=== PATIENT | male | born 1945 | race Caucasian/White ===

== ENCOUNTER → 2016-07-01 | Outpatient (CLI) | payer OTHER, BC | LOC: LAB 11:00 | PROVIDERS: ATTEND Physician Assistant | DX: R33.9 Retention of urine, unspecified (principal) | CPT/HCPCS: 36415; 84153 ==

== ENCOUNTER → 2016-10-16 | Outpatient (CLI) | payer OTHER ==
--- NOTE | 2016-10-16 22:12 | DI ---
LUMBAR SPINE SERIES, 10/16/2016 3:50 PM: Clinical History: Acute left-sided low back pain with left-sided sciatica. Previous Exam: None at this facility. Upright AP and lateral views are submitted. The vertebral bodies are of normal height and size. There is mild L4-5 disc space narrowing with a grade 1 spondylolisthesis. The remaining lumbar disc spaces are of normal height. Degenerative arthritic changes are present in the apophyseal joints bilaterall y between L4-5 and L5-S1. The pedicles and remaining posterior elements are unremarkable. Both SI maco nts are normal. There is a fusiform abdominal aortic aneurysm in the distal abdominal aorta with a ma ximum AP diameter of approximately 36 mm without correction for magnification. There may be hepatomeg la nena. Readin. L4-5 disc space narrowing with a grade 1 spondylolisthesis. There are degenerative arthritic mcgregor ges in the apophyseal joints bilaterally between L4-5 and L5-S1. 2. The remaining disc spaces are of normal height. 3. Fusiform distal abdominal aortic aneurysm with an AP measurement of 36 mm (without correction for magnification). There may be hepatomegaly.
== END ==
LOC: RAD 16:08
PROVIDERS: ATTEND Family Medicine
DX: M54.42 Lumbago with sciatica, left side (principal); M43.16 Spondylolisthesis, lumbar region
CPT/HCPCS: 72100

== ENCOUNTER → 2016-10-17 | Outpatient (CLI) | payer OTHER ==
[2016-10-17 07:22] LABS: BASOPHILS # (AUTO) 0.05 10*3/UL; BASOPHILS % (AUTO) 0.5 % (0-1); EOSINOPHILS # (AUTO) 0.38 10*3/UL; EOSINOPHILS % (AUTO) 4.1 % (0-8); HEMATOCRIT 36.8 % (42.0-52.0); HEMOGLOBIN 12.2 g/dL (14.0-18.0); LYMPHOCYTES # (AUTO) 3.15 10*3/uL; MEAN CORPUSCULAR HEMOGLOBIN 28.5 PG (27-31); MEAN CORPUSCULAR HGB CONC 33.2 g/dL (33-37); MEAN PLATELET VOLUME 10.3 FL (7.4-12.2); MONOCYTES # (AUTO) 0.76 10*3/UL (0.3-0.8); MONOCYTES % (AUTO) 8.2 % (5-15); NEUTROPHILS # (AUTO) 4.95 10*3/UL; NEUTROPHILS % (AUTO) 53.2 % (50-80); RED BLOOD COUNT 4.28 10^6/uL (4.70-6.10)
[2016-10-17 07:28] LABS: PLATELET MORPHOLOGY COMMENT NORMAL MORPHOLOGY (NORM); RBC MORPHOLOGY COMMENT NORMAL MORPHOLOGY (NORM); WBC MORPHOLOGY COMMENT NORMAL MORPHOLOGY (NORM)
[2016-10-17 07:43] LABS: BUN/CREATININE RATIO 11.66 (6-20); CALCIUM 9.2 mg/dL (8.7-10.7); CHOL/HDL RATIO 3.93 RATIO (0-4.0); SERUM ALBUMIN 4.2 g/dL (3.5-4.8); URIC ACID 9.4 mg/dl (3.8-8.5)
== END ==
LOC: LAB 06:58
PROVIDERS: ATTEND Family Medicine
DX: G57.91 Unspecified mononeuropathy of right lower limb (principal); I25.10 Atherosclerotic heart disease of native coronary artery without angina pectoris; I71.6 Thoracoabdominal aortic aneurysm, without rupture; R94.31 Abnormal electrocardiogram [ECG] [EKG]; Z13.1 Encounter for screening for diabetes mellitus; Z12.5 Encounter for screening for malignant neoplasm of prostate
CPT/HCPCS: 36415; 80053; 80061; 82306; 82607; 83036; 84443; 84550; 85025; 85652; 86618; G0103

== ENCOUNTER → 2016-11-20 | Outpatient (CLI) | payer OTHER | LOC: CT 08:46 | PROVIDERS: ATTEND Family Medicine | DX: Z01.812 Encounter for preprocedural laboratory examination (principal); I71.6 Thoracoabdominal aortic aneurysm, without rupture | CPT/HCPCS: 36415; 82565; 84520 ==

== ENCOUNTER → 2016-11-25 | Outpatient (CLI) | payer OTHER ==
--- NOTE | 2016-11-25 11:59 | EKG ---
[address] [address] Measurements Intervals [place] Rate: 76 P: 55 [place]: 144 QRS: 65 QRSD: 90 T: 48 QT: 372 QTc: 402 Interpretive Statements SINUS RHYTHM Compared to ECG 10/31/2015 08:59:56 T-wave abnormality no longer present Electronically Signed On 11-26-16 12:17:08 MDT by Chad Giles MD [email or web address]
== END ==
LOC: RT 11:12
DX: J84.112 Idiopathic pulmonary fibrosis (principal)
CPT/HCPCS: 93005; 93010

== ENCOUNTER → 2016-12-02 | Outpatient (CLI) | payer OTHER ==
[2016-12-02 10:52] LABS: BUN/CREATININE RATIO 11.57 (6-20); CALCIUM 9.4 mg/dL (8.7-10.7)
== END ==
LOC: LAB 10:03
PROVIDERS: ATTEND Family Medicine
DX: R79.89 Other specified abnormal findings of blood chemistry (principal)
CPT/HCPCS: 36415; 80048

== ENCOUNTER → 2016-12-03 | Outpatient (CLI) | payer OTHER ==
--- NOTE | 2016-12-03 14:16 | DI ---
CT ABDOMEN/PELVIS W/O CONTRAST,12/03/2016 9:01 AM: Clinical History: Thoracic or abdominal aortic aneurysm without rupture. Previous Exam: 11/16/15 Findings: Multiple helically acquired CT images are obtained through the chest, abdomen and pelvis without cont rast. There is diffuse COPD. A few peripheral vascular calcifications are seen. Coronary artery calcifications are also noted. There are a few small mediastinal lymph nodes without pathologic enlargement. The abdomen, spleen, pancreas and adrenals are unremarkable. There is a stable punctate calcification near the left renal hilum which most likely represents a vas cular calcification. The ureters are normal in course and caliber. There is dilation of the infrarenal abdominal aorta measuring 4.0 cm in AP dimension. There are is stable soft plaque noted with some encroachment of the calcified intima distally within the aorta. Facet hypertrophy is also normal. Impression: No significant change since the prior exam.
--- NOTE | 2016-12-03 14:29 | DI ---
CT CHEST W/O CONTRAST,12/03/2016 9:01 AM: Clinical History: Abdominal aortic aneurysm without rupture. Previous Exam: 11/09/2015 Findings: Multiple helically acquired CT images are obtained through the chest without contrast, and demonstrat e normal course, caliber and mild diffuse COPD. There is some subsegmental atelectasis noted as well. The upper abdomen is not well evaluated. Parikh ry artery calcifications are seen. Moderate peripheral vascular disease is also noted. The thyroid is unremarkable. Diffuse degenerative changes of the spine are seen. Impression: 1. Mild diffuse COPD. 2. No evidence of thoracic aortic aneurysmal dilation.
== END ==
LOC: CT 08:58
PROVIDERS: ATTEND Family Medicine
DX: I71.6 Thoracoabdominal aortic aneurysm, without rupture (principal); R10.84 Generalized abdominal pain; J44.9 Chronic obstructive pulmonary disease, unspecified; R79.89 Other specified abnormal findings of blood chemistry
CPT/HCPCS: 71250; 74176

== ENCOUNTER → 2017-02-13 | Outpatient (CLI) | payer OTHER ==
--- NOTE | 2017-02-13 10:59 | DI ---
BILATERAL RENAL ULTRASOUND, 02/13/2017 8:48 AM: Clinical History: Chronic renal disease. Previous Exam: None at this facility. Scans are performed through both kidneys in multiple projections. The right kidney measures 100 mm, a nd the left kidney measures 102 mm. There is no solid or cystic mass in either kidney but there is de creased renal parenchymal volume in both kidneys. There is no hydronephrosis or hydroureter. Perfusio n to both kidneys is symmetric and normal. The bladder is normal. Bilateral ureteral jets are visuali zed. There is an estimated prevoid bladder volume of 235 mL. There is 40 mL post void residual volume . Readin. Both kidneys have normal appearance except for decrease in parenchymal volume. 2. The bladder is normal and there is about 15% (40 mL) post void residual volume.
== END ==
LOC: US 08:41
DX: N18.3 Chronic kidney disease, stage 3 (moderate) (principal)
CPT/HCPCS: 76770

== ENCOUNTER 2018-10-02 06:45 | Inpatient (IN) ==
[~2018-10-02 06:45] MED LIST: LIDOCAINE W/ SODIUM BICARB 0.5 ML SYR ONE; LIDOCAINE W/ SODIUM BICARB 0.5 ML SYR SUBD PRN; Lactated Ringers 1,000 ML PRIMARY IV ONE; Nasal Sanitizer POPSWAB ampule 3 AMP (Nozin) PREOP DOSE ENOS SCH; ceFAZolin Inj 2gm (Premix) 2 GM/50 ML BAG IV ONE
[2018-10-02] MEDS ORDERED: Sodium Chloride 0.9% 1,000 ML PRIMARY IV ONE (06:51)
[2018-10-02] MEDS: Lactated Ringers 1,000 ML PRIMARY IV SCH ×3 (07:08→22:53)
[2018-10-02 07:15] LABS: BILIRUBIN,URINE NEGATIVE (NEG); CLARITY,URINE CLEAR (CLEAR); COLOR,URINE YELLOW (Y); GLUCOSE, URINE (UA) NEGATIVE (NEG); OCCULT BLOOD,URINE NEGATIVE (NEG); PH,URINE 5.5 (5.0-8.5); PROTEIN,URINE NEGATIVE (NEG); UROBILINOGEN,URINE 0.2 EU/dL (0.2)
[2018-10-02 07:16] LABS: URINE SAMPLE TYPE CLEAN CATCH URINE
[2018-10-02 07:49] LABS: BASOPHILS # (AUTO) 0.04 10*3/UL; BASOPHILS % (AUTO) 0.5 % (0-1); EOSINOPHILS # (AUTO) 0.38 10*3/UL; EOSINOPHILS % (AUTO) 4.4 % (0-8); Hematocrit [HCT] 35.9 % (42.0-52.0); Hemoglobin [HGB] 11.8 g/dL (14.0-18.0); LYMPHOCYTES # (AUTO) 2.97 10*3/uL; MEAN CORPUSCULAR HEMOGLOBIN 29.6 PG (27-31); MEAN CORPUSCULAR HGB CONC 32.9 g/dL (33-37); MEAN PLATELET VOLUME 10.3 FL (7.4-12.2); MONOCYTES # (AUTO) 0.61 10*3/UL (0.3-0.8); MONOCYTES % (AUTO) 7.1 % (5-15); NEUTROPHILS # (AUTO) 4.63 10*3/UL; NEUTROPHILS % (AUTO) 53.5 % (50-80); RED BLOOD COUNT 3.99 10^6/uL (4.70-6.10)
[2018-10-02 07:55] LABS: PLATELET MORPHOLOGY COMMENT NORMAL MORPHOLOGY (NORM); RBC MORPHOLOGY COMMENT NORMAL MORPHOLOGY (NORM); WBC MORPHOLOGY COMMENT NORMAL MORPHOLOGY (NORM)
[2018-10-02] MEDS ORDERED: Sodium Chloride 0.9% 500 ML ONE (08:32)
[2018-10-02] MEDS ORDERED: TRANEXAMIC ACID 1,000 MG / 10 ML VIAL ONE ×3 (08:32→10:41)
[2018-10-02] MEDS ORDERED: Sodium Chloride 0.9% 100 ML IV ONE (08:32)
[2018-10-02] MEDS ORDERED: IPRATROPIUM/ALBUTEROL SULFATE 3 ML NEB NEB ONE ×2 (08:49→08:53)
[2018-10-02] MEDS ORDERED: PROPOFOL 10 MG/1 ML (200 MG/20 ML) VIAL IV ONE (09:03)
[2018-10-02] MEDS ORDERED: fentaNYL Inj 250 MCG/5 ML VIAL ONE (09:04)
[2018-10-02] MEDS ORDERED: ROCURONIUM 10 MG/1 ML - 5 ML VIAL IVP ONE (09:05)
[2018-10-02] MEDS ORDERED: SUCCINYLCHOLINE CHLORIDE 20 MG/1 ML - 10 ML ONE (09:05)
[2018-10-02] MEDS ORDERED: MIDAZOLAM HCL 2 MG/2 ML VIAL ONE (09:13)
[2018-10-02] MEDS ORDERED: BUPIVACAINE SPINAL 7.5 MG/1 ML - 2 ML IV ONE (09:22)
[2018-10-02] MEDS ORDERED: ceFAZolin 1 GM VIAL ONE (10:19)
[2018-10-02] MEDS ORDERED: Hetastarch 6% + NS 500 ML IV ONE (10:27)
[2018-10-02] MEDS ORDERED: ceFAZolin Inj 1 GM in Sodium Chloride 0.9% 100 ML IV ONE (10:43)
[2018-10-02] MEDS ORDERED: DEXAMETHASONE PF 10 MG/1 ML VIAL ONE (11:33)
[2018-10-02] MEDS ORDERED: MAG HYDROX/AL HYDROX/SIMETH 30 ML SUSP PO PRN (12:21)
[2018-10-02] MEDS ORDERED: Ondansetron ODT Tab 8 MG TAB PO PRN (12:21)
[2018-10-02] MEDS ORDERED: CALCIUM CARBONATE 500 MG (TUMS) CHEWABLE TABLET PO PRN (12:21)
[2018-10-02] MEDS ORDERED: BISACODYL 5 MG TABLET PO PRN (12:21)
[2018-10-02] MEDS ORDERED: ACETAMINOPHEN 325 MG TABLET PO PRN (12:21)
[2018-10-02] MEDS ORDERED: Prochlorperazine Tab 10 MG TAB PO PRN (12:21)
[2018-10-02] MEDS ORDERED: KETOROLAC 15 MG/1 ML VIAL IVP PRN (12:21)
[2018-10-02] MEDS ORDERED: diphenhydrAMINE 25 MG CAPSULE PO PRN (12:21)
[2018-10-02] MEDS ORDERED: ONDANSETRON 4 MG/2 ML VIAL IVP PRN (12:21)
[2018-10-02] MEDS ORDERED: BISACODYL 10 MG SUPPOSITORY RECTAL PRN (12:21)
[2018-10-02] MEDS ORDERED: IBUPROFEN 400 MG TABLET PO PRN (12:21)
[2018-10-02] MEDS ORDERED: traMADol 50 MG TABLET PO PRN (12:27)
--- NOTE | 2018-10-02 12:42 | CRNA.PROGR ---
Anesthesia Time - Procedure/Recovery Time Start Date: 10/02/18 End Date: 10/02/18 Anesthesia : Time In: 09:48 Anesthesia : Time Out: 12:44 Anesthesia : Total Time: 176 - Total Anesthesia Time Total Anesthesia Time (minutes): 176 - Other Weight: 113.398 kg Height: 6 ft Body Mass Index (BMI): 33.9 Anesthesia Type: General Anesthesia : ET (stable at patient hand off pacu)
--- NOTE | 2018-10-02 12:43 | CRNA.PROGR ---
Post Anesthesia Phase II - Post Anesthesia Phase II Problems, Treatments or Complications During Recovery: block level descending, stable for floor Patient Stable and Discharged To: Phase II Care Assumed By Surgeon: Clyde Mena MD Temperature: 97.6 F Pulse Rate: 78 Respiratory Rate: 18 Blood Pressure: 102/69 Pulse Ox: 94 Total Cali Score at Discharge: 10 Post Anesthesia Discharge Criteria Met: Yes
--- NOTE | 2018-10-02 13:07 | ORTHO.OP ---
Surgery Date: 10/02/18 Preoperative Diagnosis: left hip arthritis Postoperative Diagnosis: same as pre op Procedure: left dayne Surgeon: Clyde Mena MD Business Objects Consultant: vero asif Anesthesia Provider: Baldev Clemons MD Anesthesia Type: General Estimated Blood Loss (mL): 300 Findings: left hip arthritis
--- NOTE | 2018-10-02 13:36 | DI ---
AP PELVIS AND LEFT HIP, 10/02/2018 12:35 PM: Clinical History: Status post left total hip replacement. Osteoarthritis. Previous Exam: None at this facility. Comparison is made with films dated 09/25/2018 from [facility] [place], [place]. Views: AP pelvis with AP and crosstable lateral views of replaced hip. Patient is status post left total hip replacement. Prosthetic joint articulates normally. Reading: Status post left total hip replacement. Prosthetic joint articulates normally.
[2018-10-02] MEDS: oxyCODONE/APAP 10/325 Tab 1 EACH TAB PO PRN ×3 (14:03→22:54)
[2018-10-02] MEDS: oxyCODONE IR Tab 5 MG TAB PO SCH ×3 (14:27→21:27)
[2018-10-02] MEDS: CALCIUM CARBONATE 500 MG (TUMS) CHEWABLE TABLET PO SCH (15:22)
[2018-10-02] MEDS: GABAPENTIN 300 MG CAPSULE PO SCH ×2 (15:22→21:27)
--- NOTE | 2018-10-02 20:30 | CONSULT ---
Consult Note - Consult Consult Date: 10/02/18 Reason for Consult: PostOp Consulation : Ortho Requesting Physician: Dr. Mena Primary Care Provider: Barry Veloz MD - History of Present Illness History of Present Illness: This is a 73 years old male with medical history significant for history of peripheral neuropathy, chronic kidney disease stage III, history of gout, history of BPH who came into the hospital to have a total hip arthroplasty and was done by Dr. Mena the hospitalist service were consulted for management of medical issues. Patient was seen postoperatively, he was complaining from pain in his hip but otherwise denied nausea, vomiting, dyspnea. Past Medical History Medical History: 1. History of peripheral neuropathy had it for 3-4 years he is on chronic pain medications. 2. History of chronic kidney disease stage III he said he has an appointment with nephrology in [place] in November. 3. History of gout Surgical History: History of colonoscopy Family History: Reviewed an Not Pertinent Past Social History: Does not drink, used to smoke, no drugs. Tobacco Use: Former Smoker Do you dip or chew tobacco: No In the Past 12 Months, Have Used or Abuse Any of the Following Substance: None Alcohol Use: None Medication / Allergies Home Medications: Home Medications Medication Instructions Recorded Confirmed Type oxycodone 5 mg tablet 5 mg PO Q4HR tab 05/26/17 10/02/18 History Cymbalta 30 mg capsule,delayed 30 mg PO BID #60 cap NS 12/18/17 09/29/18 Rx release pregabalin 75 mg capsule 75 mg PO BID #60 cap 06/19/18 09/29/18 Rx Tamsulosin HCl 0.4 mg PO BEDTIME 10/02/18 10/02/18 History Allergies/Adverse Reactions: Allergies Allergy/AdvReac Type Severity Reaction Status Date / Time Penicillins Allergy Unknown FLUSHING Verified 10/02/18 07:19 Exam - Vitals Vital Signs: Vital Signs Temperature 97.8 F Temperature Source Oral Pulse Rate [Apical] 76 Pulse Rate [Pulse Oximeter] 106 Pulse Rate 60 Respiratory Rate 18 Blood Pressure [Left Arm] 119/62 Blood Pressure 129/68 Pulse Ox 91 Oxygen Flow Rate 4 Oxygen Delivery Method Nasal Cannula Height 6 ft Weight 255 lb - General General Appearance: No Acute Distress, Cooperative, Obese - Head Head Exam: Normal Inspection - Eye Eye Exam: POSITIVE: Normal Appearance - ENT ENT Exam: POSITIVE: Normal Exam - Neck Neck Exam: Normal Inspection - Respiratory Respiratory Exam: POSITIVE: Clear to Auscultation - Bilaterally - Cardiovascular Cardiovascular Exam: POSITIVE: RRR - GI/Abdominal GI/Abdominal Exam: POSITIVE: Normal Bowel Sounds, Non Tender, Non Distended, Soft, No Organomegaly - Rectal Rectal Exam: POSITIVE: Deferred - External Exam: POSITIVE: Deferred - Extremities Extremities Exam: POSITIVE: Normal Inspection - Neurological Neurological Exam: POSITIVE: Alert, Oriented x 3, CN II-XII Intact, No Facial Droop, Speech Intact / Clear - Psychiatric Psychiatric Exam: POSITIVE: Normal Affect Results - Labs CBC and BMP: 10/03/18 04:10 10/03/18 04:10 Assessment and Plan - Patient Problems (1) Status post left hip replacement Current Visit: Yes Status: Acute Comment: Management per Dr. Mena he consulted PT and OT. For DVT prophylaxis he put him on Lovenox Code(s): Z96.642 - Presence of left artificial hip joint (2) History of peripheral neuropathy Current Visit: Yes Status: Acute Comment: Continue his previous medications Code(s): Z86.69 - Personal history of other diseases of the nervous system and sense organs (3) History of BPH Current Visit: Yes Status: Acute Comment: He is on Flomax continue Code(s): Z87.438 - Personal history of other diseases of male genital organs
[2018-10-02] MEDS ORDERED: TAMSULOSIN 0.4 MG CAPSULE PO SCH (21:00)
[2018-10-02] MEDS: DOCUSATE 100 MG CAPSULE PO SCH (21:27)
[2018-10-02] MEDS: DULOXETINE 30 MG CAPSULE PO SCH (21:27)
[2018-10-02] MEDS: PREGABALIN 75 MG CAPSULE PO SCH (21:27)
[2018-10-02] MEDS: MORPHINE SULFATE 2 MG/1 ML IVP PRN (22:54)
[2018-10-03 00:14] VITALS: RESP 20; O2SAT 92
[2018-10-03] MEDS: MORPHINE SULFATE 2 MG/1 ML IVP PRN (00:56)
[2018-10-03] MEDS: oxyCODONE IR Tab 5 MG TAB PO SCH ×3 (00:56→09:46)
[2018-10-03] MEDS: oxyCODONE/APAP 10/325 Tab 1 EACH TAB PO PRN (02:57)
[2018-10-03 04:54] LABS: Hemoglobin [HGB] 8.3 g/dL (14.0-18.0); MEAN CORPUSCULAR HEMOGLOBIN 30.1 PG (27-31); MEAN CORPUSCULAR HGB CONC 33.2 g/dL (33-37); MEAN CORPUSCULAR VOLUME 90.6 FL (80-90); RED BLOOD COUNT 2.76 10^6/uL (4.70-6.10)
[2018-10-03 05:07] LABS: BLOOD UREA NITROGEN 19 mg/dL (7-22); BUN/CREATININE RATIO 11.87 (6-20)
--- NOTE | 2018-10-03 06:09 | ORTHO.PROG ---
Last Taken Vital Signs: Vital Signs - Last Taken Temperature 97.8 F 10/03/18 04:27 Pulse Rate 103 H 10/03/18 04:27 Respiratory Rate 20 10/03/18 00:13 Blood Pressure 106/52 10/03/18 04:27 Pulse Ox 92 10/03/18 04:27 Subjective: Pt doing well this am, hoping to go home. Objective: Dressing c/d/i. Wiggling toes, neuro intact Assessment: POD #1 left TKA. hct 25 this am but pt asymptomatic. Will hold on transfusion. Anticipate d/c later today after PT.
[2018-10-03 08:46] VITALS: BP 120/68; TEMP 97.9
[2018-10-03] MEDS ORDERED: ENOXAPARIN SODIUM 40 MG/0.4 ML SYRINGE SUBCUT SCH ×2 (09:00)
[2018-10-03] MEDS ORDERED: ALLOPURINOL 100 MG TABLET PO SCH (09:00)
[2018-10-03] MEDS: DOCUSATE 100 MG CAPSULE PO SCH (09:47)
[2018-10-03] MEDS: DULOXETINE 30 MG CAPSULE PO SCH (09:47)
[2018-10-03] MEDS: CALCIUM CARBONATE 500 MG (TUMS) CHEWABLE TABLET PO SCH (09:47)
[2018-10-03] MEDS: PREGABALIN 75 MG CAPSULE PO SCH (10:24)
[2018-10-03] MEDS: GABAPENTIN 300 MG CAPSULE PO SCH (10:25)
[2018-10-03] MEDS: Lactated Ringers 1,000 ML PRIMARY IV SCH (10:55)
--- NOTE | 2018-10-03 13:04 | DCSUMMARY ---
Hospitalization Summary Admit Date: 10/02/2018 Discharge Date: 10/03/18 Hospital Course: Discharge diagnoses 1. Status post left total hip arthroplasty 2. History of peripheral neuropathy 3. History of chronic kidney disease 4. History of gout 5. History of hypoxia on oxygen Hospital course This is a 73-year-old male with medical history significant for history of peripheral neuropathy, chronic kidney disease stage III, history of gout, history of hypoxia on oxygen who came into the hospital to have left total hip arthroplasty and was done by Dr. Mena the hospitalist service were consulted for management of medical issue postsurgery. Patient did not have symptoms except pain in his hip. We continued the same plan. Did have a physical therapy assessment and also seen by Dr. Mena. Post physical therapy assessment the family related and the patient also that they wants to go home and they're able to provide the support that the physical therapist felt they need so he was cleared to be discharged home. Patient was discharged home to follow-up with Dr. Mena. Dr. Mena wrote for Lovenox Patient will follow-up with him as an outpatient He did have some anemia postsurgery we wrote for iron and vitamin. Patient denied symptoms on the day of discharge. Patient was eager to go home. Discharge instruction Diet regular Activity as tolerated Medications Current Medication(s) Medication Instructions Recorded Confirmed Type oxycodone 5 mg tablet 5 mg PO Q4HR tab 05/26/17 10/02/18 History Cymbalta 30 mg capsule,delayed 30 mg PO BID #60 cap NS 12/18/17 09/29/18 Rx release pregabalin 75 mg capsule 75 mg PO BID #60 cap 06/19/18 09/29/18 Rx Tamsulosin HCl 0.4 mg PO BEDTIME 10/02/18 10/02/18 History Enoxaparin Inj [Lovenox Inj] 40 mg SUBCUT DAILY syringe 10/03/18 Rx Ferrous Sulfate/Vit C/Folic AC 1 ea PO DAILY #30 tablet.er 10/03/18 Rx [Folitab 500 Caplet] Gabapentin [Neurontin] 300 mg PO TID cap 10/03/18 Rx Follow-up with PCP, follow-up with the Dr. Mean Condition at discharge stable for discharge Exam - Vitals Vital Signs: Vital Signs Temperature 97.9 F Temperature Source Temporal Artery Scan Pulse Rate [Apical] 76 Pulse Rate [Pulse Oximeter] 93 Pulse Rate 60 Respiratory Rate 20 Blood Pressure [Right Arm] 120/68 Blood Pressure [Left Arm] 106/52 Blood Pressure 129/68 Pulse Ox 92 Oxygen Flow Rate 4.5 Oxygen Delivery Method Nasal Cannula Height 6 ft Weight 266 lb 6.4 oz - General General Appearance: No Acute Distress, Cooperative - Head Head Exam: Normal Inspection - Eye Eye Exam: POSITIVE: Normal Appearance - ENT ENT Exam: POSITIVE: Normal Exam - Neck Neck Exam: Normal Inspection - Respiratory Respiratory Exam: POSITIVE: Clear to Auscultation - Bilaterally - Cardiovascular Cardiovascular Exam: POSITIVE: RRR - GI/Abdominal GI/Abdominal Exam: POSITIVE: Normal Bowel Sounds, Non Tender, Non Distended, Firm, No Organomegaly - Rectal Rectal Exam: POSITIVE: Deferred - External Exam: POSITIVE: Deferred Exam: POSITIVE: Deferred - Extremities Extremities Exam: POSITIVE: Normal Inspection - Back Back Exam: POSITIVE: Normal Inspection - Neurological Neurological Exam: POSITIVE: Alert, Oriented x 3, CN II-XII Intact, No Facial Droop, Speech Intact / Clear - Psychiatric Psychiatric Exam: POSITIVE: Normal Affect Patient Problems - Patient Problem List (1) Status post left hip replacement Status: Acute Code(s): Z96.642 - Presence of left artificial hip joint Category: Surgical (2) History of peripheral neuropathy Status: Acute Code(s): Z86.69 - Personal history of other diseases of the nervous system and sense organs Category: Medical (3) History of BPH Status: Acute Code(s): Z87.438 - Personal history of other diseases of male genital organs Category: Medical
--- NOTE | 2018-10-05 11:18 | PTI REPORT ---
Thank you for the referral of Eliot Bower. He was seen on 10/02/18 for an inpatient evaluation status post posterior total hip replacement. SUBJECTIVE: The patient is a 73-year-old male. The patient reports he lives just outside of [place] with his . He has a bi-level home and has about a flight of stairs to get to the main level. The patient uses a walking stick to get around. The patient has a four wheeled walker at home that is brand new. The patient is on three liters of oxygen at home. The patient would like to go home tomorrow. Nursing okayed treatment prior to PT. PAST MEDICAL HISTORY: Past medical history can be found in the patient's medical record. OBJECTIVE FINDINGS: General observations: The patient is on four liters of oxygen. The patient does not have a catheter. The patient is on an IV. Bed mobility: The patient requires min assist x2 for supine to sit transfer to edge of bed. Seated edge of bed balance is good. Transfers: The patient requires min assist x2 for sit to stand transfer with standard walker. The patient was issued a standard walker. The patient performed stand to sit transfer with contact guard assist x2. Ambulation: The patient was instructed to ambulate approximately 15 feet with contact guard assist x2. Nurse was present for line management of IV and oxygen. ASSESSMENT: The patient is a 73-year-old male status post total hip arthroplasty. The patient will benefit from skilled therapy in order to improve functional mobility so the patient will be able to return to prior level of function. The patient's prognosis for therapy is good. Problem List: Decreased strength Decreased functional mobility Short-Term Goals: To be met by discharge from inpatient: Patient will be independent with all transfers with walker. Patient will be able to ambulate 150 feet with walker. Patient will be able to ascend and descend a flight of stairs with walker independently. Long-Term Goals: To be met following discharge from inpatient: Patient will be seen by outpatient physical therapy. TREATMENT PLAN: Patient will be seen B.I.D during the week and one time per day over the weekend as an inpatient for therapeutic exercise, functional activity, neuromuscular reeducation, gait training, and modalities as needed. INITIAL TREATMENT: Treatment today consisted of the initial evaluation. Following treatment the patient was transferred to his chair with contact guard assist x2. The patient was instructed on posterior hip precautions today. He would like to get a written copy of his hip precautions. The patient was left in chair with nursing present, call light within reach, and chair alarm activated. DICKSON
--- NOTE | 2018-10-05 12:43 | OTI REPORT ---
Thank you for the referral of Eliot Bower. He was seen on 10/03/18 for an occupational therapy inpatient evaluation status post left total hip arthroplasty. SUBJECTIVE: The patient is a 73-year-old male who had a left posterior hip arthroplasty. The patient lives in [place]. The patient suffers from peripheral neuropathy of his upper and lower extremities. He has numbness in his hands and his feet. He reports that he has been to multiple doctors and has been dealing with this for years. The patient's son and daughter were both present during the session today. They are both pretty adamant about taking him home and stated that they are very well equipped to take care of him, even with some of the concerns that were brought up today with his transfers and mobility issues. They report that his pretty much dresses him everyday because he can't feel his pants with his fingers and he has difficulty knowing where his feet are. He typically does not use a walker but did have one today. The patient reports that he was willing to try adaptive devices. He does have a shower chair as well as a high rise toilet seat at home. PAST MEDICAL HISTORY: Past medical history can be found in the patient's medical record. OBJECTIVE FINDINGS: Bed mobility: The patient was able to come from supine to sit with min assist. Activities of daily living: The patient was able to use cur[employer] with min assist to dress lower extremities. Transfers: The patient requires min assist to transfer from sit to stand for balance. Ambulation: The patient does tend to have difficulty using the walker. He needed verbal cues to not walk so far into the walker. He was able to get in a rhythm and ambulated approximately 50 feet to the stairwell. Once in the stairwell we worked on ascending and descending stairs, going up with the good leg and down with the bad leg and using the walker. The patient did well with this; he needed verbal cues for which leg he was to use first. He then ambulated back to his room. He needed min verbal cues and min assist to turn using the walker safely and appropriately. ASSESSMENT: The patient is not safe to be by himself; however, the patient, his son, and his daughter were very adamant about the patient going home today. The safety issues and impulsivity that the patient was demonstrating were highly emphasized during the session today. He does tend to get a little ahead of himself. He needed min assist in order to keep his balance with turns and with sit to stands. The patient will continue to get assistance with dressing self. His hip precautions were highly emphasized as well as slowing down and taking his time to complete tasks at home. Gait belt safety was also highly emphasized with the family and to always be hanging onto the gait belt when he is up and moving around. Short-Term Goals: To be met by discharge from inpatient: Patient will be able to dress self with mod assist. Patient will be able to complete all functional transfers with contact guard assist. Patient will be able to ascend and descend stairs with contact guard assist. Long-Term Goals: To be met following discharge from inpatient: Patient will return home with 24-hour care and assistance for functional transfers and ADLs. TREATMENT PLAN: Patient will be seen for initial evaluation only. The patient and his family want to leave today. INITIAL TREATMENT: Treatment today consisted of the initial evaluation. The patient was educated in hip precautions. His daughter and son were also educated in precautions. The patient was issued a bath sponge and curator [employer] museum for increased independence at home. DICKSON
== END 2018-10-03 11:30 | disposition home or self-care (01) | DRG 470 ==
LOC: OPS 06:45 → MED/SURG 13:27
PROVIDERS: ADMIT Orthopaedic Surgery; ATTEND Orthopaedic Surgery